=== PATIENT | female | born 1975 | race African-American/Black ===

== ENCOUNTER 2018-10-13 15:43 | Emergency (ER) | payer SELFPAY ==
[~2018-10-13] VITALS: Ht 162.6 cm; Wt 54.0 kg
[2018-10-13] MEDS ORDERED: ONDANSETRON HCL 4MG/2ML INJ IV STA (16:19)
[2018-10-13] MEDS ORDERED: SODIUM CHLORIDE 0.9% 1,000 ML IV ONE (16:19)
[2018-10-13 17:05] LABS: BASOPHILS % 0.5 % (0.0-2.0); EOSINOPHILS % 0.6 % (0.0-5.0); HEMATOCRIT. 52.6 % (36.0-48.0); HEMOGLOBIN. 18.1 g/dL (12.0-16.0); LYMPHOCYTES % 20.9 % (20.0-50.0); MEAN CORPUSCULAR HEMOGLOBIN 34.3 pg (28.0-32.0); MEAN CORPUSCULAR VOLUME 99.5 fL (81.0-99.0); MEAN PLATELET VOLUME 8.8 fl (7.4-10.4); MONOCYTES % 8.9 % (2.0-8.0); NEUTROPHILS % 69.1 % (40.0-76.0); PLATELET 295 x1000/uL (130-400); RED BLOOD CELL COUNT 5.28 mill/uL (4.2-5.4); RED CELL DISTRIBUTION WIDTH 14.9 % (11.6-14.6)
[2018-10-13 17:11] LABS: CHLORIDE 98 mEq/L (98-107)
[2018-10-13 17:12] LABS: INR 1.1; PROTHROMBIN TIME 10.6 sec (9.1-11.1)
[2018-10-13 17:53] LABS: CLARITY URINE CLOUDY (CLEAR); COLOR URINE DARK YELLOW (YELLOW); KETONES URINE TRACE (NEGATIVE); LEUKOCYTE ESTERASE URINE NEGATIVE (NEGATIVE); NITRITE URINE NEGATIVE (NEGATIVE); OCCULT BLOOD URINE 2+ (NEGATIVE); PROTEIN URINE 3+ (NEGATIVE)
[2018-10-13 18:05] LABS: *AMPHETAMINES SCREEN URINE NEGATIVE (NEGATIVE); *BARBITURATES SCREEN URINE NEGATIVE (NEGATIVE); *BENZODIAZEPINES SCREEN URINE NEGATIVE (NEGATIVE); *COCAINE SCREEN URINE NEGATIVE (NEGATIVE); METHADONE URINE SCREEN NEGATIVE (NEGATIVE)
[2018-10-13 18:06] LABS: CANNABINOID URINE SCREEN NEGATIVE (NEGATIVE); OPIATES URINE SCREEN NEGATIVE (NEGATIVE); PHENCYCLIDINE URINE SCREEN NEGATIVE (NEGATIVE)
[2018-10-13] MEDS ORDERED: AMLODIPINE 5MG TABLET PO ONE (18:30)
[2018-10-13] MEDS ORDERED: HYDRALAZINE 20MG/ML VIAL IV ONE (19:30)
[2018-10-13] MEDS ORDERED: MAGNESIUM/ALUMINUM HYDROXIDE/SIMETHICONE 30ML UDC PO ONE (20:00)
[2018-10-13 20:51] VITALS: BP 168/110
== END 2018-10-13 20:52 | disposition home or self-care (01) ==
LOC: ER 15:43
DX: R10.33 Periumbilical pain (principal); I16.0 Hypertensive urgency; I10 Essential (primary) hypertension; R11.0 Nausea
CPT/HCPCS: 36415; 74176; 80053; 80305; 81003; 81025; 83690; 85025; 85610; 93005; 96361; 96374; 96375; 99284; J0360; J2405; J7030; Z7610

== ENCOUNTER 2021-02-03 17:35 | Emergency (ER) | payer OTHER ==
[~2021-02-03] VITALS: Ht 170.2 cm; Wt 77.0 kg
[2021-02-03] MEDS ORDERED: ONDANSETRON HCL 4MG/2ML INJ IV STA (22:02)
[2021-02-03] MEDS ORDERED: PANTOPRAZOLE SODIUM 40 MG/VIAL IV STA (22:02)
[2021-02-03] MEDS ORDERED: SODIUM CHLORIDE 0.9% 1,000 ML IV ONE (22:15)
[2021-02-03 22:16] LABS: BASOPHILS % 0.4 % (0.0-2.0); HEMATOCRIT. 38.3 % (36.0-48.0); HEMOGLOBIN. 13.6 g/dL (12.0-16.0); LYMPHOCYTES % 19.6 % (20.0-50.0); MEAN CORPUSCULAR HEMOGLOBIN 37.7 pg (28.0-32.0); MEAN CORPUSCULAR VOLUME 106.3 fL (81.0-99.0); MEAN PLATELET VOLUME 8.8 fl (7.4-10.4); MONOCYTES % 9.1 % (2.0-8.0); NEUTROPHILS % 69.9 % (40.0-76.0); PLATELET 290 x1000/uL (130-400); RED BLOOD CELL COUNT 3.61 mill/uL (4.2-5.4); RED CELL DISTRIBUTION WIDTH 15.8 % (11.6-14.6)
[2021-02-03 22:21] LABS: CHLORIDE 97 mEq/L (98-107)
[2021-02-03 22:25] LABS: HCG SCREEN NEGATIVE
[2021-02-03] MEDS ORDERED: IOHEXOL-300 100 ML BOTTLE ONE (23:12)
[2021-02-04 00:12] LABS: PROTHROMBIN TIME 10.3 sec (9.6-11.0)
[2021-02-04] MEDS ORDERED: ACETAMINOPHEN 325MG TABLET PO ONE (00:45)
[2021-02-04 01:09] LABS: CLARITY URINE CLEAR (CLEAR); COLOR URINE YELLOW (YELLOW); KETONES URINE 3+ (NEGATIVE); LEUKOCYTE ESTERASE URINE NEGATIVE (NEGATIVE); NITRITE URINE NEGATIVE (NEGATIVE); OCCULT BLOOD URINE 3+ (NEGATIVE); PH URINE 6.5 (4.5-8.0); PROTEIN URINE 1+ (NEGATIVE); SPECIFIC GRAVITY URINE 1.097 (1.005-1.030)
[2021-02-04] MEDS ORDERED: SODIUM CHLORIDE 0.9% 1,000 ML IV ONE (01:30)
[2021-02-04 04:04] VITALS: BP 122/73
== END 2021-02-04 04:17 | disposition short-term general hospital (02) ==
LOC: ER 17:35
DX: K92.2 Gastrointestinal hemorrhage, unspecified (principal); E86.0 Dehydration
CPT/HCPCS: 36415; 74177; 80053; 81003; 83690; 84703; 85025; 85610; 96374; 96375; 99285; C9113; J2405; J7030; Q9967